=== PATIENT | male | born 1985 | race Caucasian/White ===

== ENCOUNTER 2020-04-07 17:12 | Emergency (ER) | payer OTHER ==
[~2020-04-07] VITALS: Ht 180.3 cm; Wt 104.6 kg
[2020-04-07 17:22] VITALS: BP 188/112
[2020-04-07] MEDS ORDERED: ondansetron 4mg rapidly disintigrating tab PO STA (17:27)
[2020-04-07] MEDS ORDERED: LIDOcaine Viscous 15ml cup MM ONE (17:30)
[2020-04-07] MEDS ORDERED: mag hydrox/Alum hydrox/simeth 30ml oral suspension PO ONE (17:30)
[2020-04-07] MEDS ORDERED: sucralfate 1 gm tablet PO ONE (17:30)
[2020-04-07 18:01] LABS: BASOPHILS # (AUTO) 0.1 X10'3 (0-0.2); BASOPHILS % (AUTO) 0.7 % (0-1); EOSINOPHILS # (AUTO) 0.3 X10'3 (0-0.9); EOSINOPHILS % (AUTO) 2.9 % (0-6); HEMATOCRIT 49.4 % (42.0-52.0); HEMOGLOBIN 16.8 g/dl (14.0-17.9); LYMPHOCYTES # (AUTO) 1.4 X10'3 (1.1-4.8); LYMPHOCYTES % (AUTO) 13.7 % (21-51); MEAN CORPUSCULAR HGB CONC 34.1 g/dL (33.0-36.5); MEAN CORPUSCULAR VOLUME 87.9 FL (78-98); MEAN PLATELET VOLUME 6.9 FL (7.4-10.4); MONOCYTES # (AUTO) 0.6 X10'3 (0-0.9); MONOCYTES % (AUTO) 5.7 % (2-12); NEUTROPHILS # (AUTO) 7.7 X10'3 (1.8-7.7); PLATELET COUNT 257 X10'3 (140-440); RED BLOOD COUNT 5.62 X10'6 (4.70-6.10); RED CELL DISTRIBUTION WIDTH 13.3 % (11.5-14.5)
[2020-04-07 18:08] LABS: ALANINE AMINOTRANSFERASE 59 U/L (12-78); ALBUMIN 4.2 G/DL (3.4-5.0); ALKALINE PHOSPHATASE 63 IU/L (46-116); AMYLASE 78 U/L (25-115); ANION GAP 7 (8-16); ASPARTATE AMINO TRANSFERASE 26 U/L (10-37); BILIRUBIN,TOTAL 0.6 MG/DL (0.1-1.0); BLOOD UREA NITROGEN 10 MG/DL (7-18); BUN/CREATININE RATIO 8.3 (5.4-32.0); CALCIUM 9.5 MG/DL (8.5-10.1); CHLORIDE 99 MMOL/L (99-107); GLUCOSE 98 MG/DL (70-104); LIPASE 485 U/L (73-393); POTASSIUM 4.1 MMOL/L (3.5-5.1); SODIUM 136 MMOL/L (135-145); TOTAL CARBON DIOXIDE 29.7 MMOL/L (24-32); TOTAL PROTEIN 8.4 G/DL (6.4-8.2); eGFR 69 ML/MIN
[2020-04-07] MEDS ORDERED: PANT-47 PO (18:18)
[2020-04-07 18:26] LABS: CLARITY,URINE CLEAR (Clear); COLOR,URINE YELLOW (Yellow); GLUCOSE, URINE NEGATIVE (Neg); KETONES,URINE NEGATIVE (Neg); LEUKOCYTE ESTERASE ,URINE NEGATIVE (Neg); NITRITES, URINE NEGATIVE (Neg); OCCULT BLOOD,URINE NEGATIVE (Neg); PH,URINE 6.5 (4.8-8.0); PROTEIN,URINE NEGATIVE (Neg); UROBILINOGEN,URINE 0.2 E.U/dL (0.2-1.0)
[2020-04-07 18:27] LABS: UA COLLECTION TYPE URINAL
== END 2020-04-07 18:27 | disposition home or self-care (01) ==
LOC: ER 17:13
DX: K29.20 Alcoholic gastritis without bleeding (principal); F10.10 Alcohol abuse, uncomplicated; F17.200 Nicotine dependence, unspecified, uncomplicated; R50.9 Fever, unspecified; Y90.0 Blood alcohol level of less than 20 mg/100 ml
CPT/HCPCS: 36415; 80053; 81003; 82150; 83690; 85025; 99284

== ENCOUNTER 2021-05-02 15:29 | Emergency (ER) | payer OTHER ==
[~2021-05-02] VITALS: Ht 180.3 cm; Wt 102.3 kg
[~2021-05-02 15:29] MED LIST: PANT-47 PO
[2021-05-02] MEDS ORDERED: sucralfate 1gm/10ml UD suspension PO STA (15:34)
[2021-05-02] MEDS ORDERED: LIDOcaine Viscous 15ml cup MM ONE (15:35)
[2021-05-02] MEDS ORDERED: mag hydrox/Alum hydrox/simeth 30ml oral suspension PO ONE (15:35)
[2021-05-02] MEDS ORDERED: sucralfate 1 gm tablet PO STA (15:37)
[2021-05-02 15:53] VITALS: BP 190/100
[2021-05-02 16:24] LABS: BASOPHILS % (AUTO) 0.3 % (0-1); EOSINOPHILS % (AUTO) 0.3 % (0-6); HEMATOCRIT 51.5 % (42.0-52.0); HEMOGLOBIN 17.6 g/dl (14.0-17.9); LYMPHOCYTES # (AUTO) 0.8 X10'3 (1.1-4.8); LYMPHOCYTES % (AUTO) 7.3 % (21-51); MEAN CORPUSCULAR HEMOGLOBIN 30.2 PG (27.0-31.0); MEAN CORPUSCULAR HGB CONC 34.1 g/dL (33.0-36.5); MEAN CORPUSCULAR VOLUME 88.5 FL (78-98); MEAN PLATELET VOLUME 7.1 FL (7.4-10.4); MONOCYTES # (AUTO) 0.6 X10'3 (0-0.9); MONOCYTES % (AUTO) 4.8 % (2-12); NEUTROPHILS # (AUTO) 10.1 X10'3 (1.8-7.7); NEUTROPHILS % (AUTO) 87.3 % (42-75); PLATELET COUNT 304 X10'3 (140-440); RED BLOOD COUNT 5.82 X10'6 (4.70-6.10); RED CELL DISTRIBUTION WIDTH 13.5 % (11.5-14.5); WHITE BLOOD COUNT 11.6 X10'3 (4.5-11.0)
[2021-05-02 16:42] LABS: ALANINE AMINOTRANSFERASE 64 U/L (12-78); ALBUMIN 4.4 G/DL (3.4-5.0); ALBUMIN/GLOBULIN RATIO 1.2 (1.1-1.5); ALKALINE PHOSPHATASE 84 IU/L (46-116); ANION GAP 8 (8-16); ASPARTATE AMINO TRANSFERASE 25 U/L (10-37); BILIRUBIN,TOTAL 0.7 MG/DL (0.1-1.0); BLOOD UREA NITROGEN 9 MG/DL (7-18); BUN/CREATININE RATIO 7.8 (5.4-32.0); CALCIUM 9.8 MG/DL (8.5-10.1); CHLORIDE 101 MMOL/L (99-107); CREATININE 1.16 MG/DL (0.60-1.10); GLUCOSE 117 MG/DL (70-104); POTASSIUM 4.4 MMOL/L (3.5-5.1); SODIUM 137 MMOL/L (135-145); TOTAL CARBON DIOXIDE 28.2 MMOL/L (24-32); TOTAL PROTEIN 8.2 G/DL (6.4-8.2); eGFR 71 ML/MIN
[2021-05-02 17:01] LABS: LIPASE 3538 U/L (73-393)
[2021-05-02] MEDS ORDERED: ONDA4TAB6 PO (17:34)
[2021-05-02] MEDS ORDERED: SUCR1TAB34 PO (17:34)
[2021-05-02] MEDS ORDERED: HYDR-3972 PO (17:34)
== END 2021-05-02 18:30 | disposition home or self-care (01) ==
LOC: ER 15:30
DX: K85.20 Alcohol induced acute pancreatitis without necrosis or infection (principal); R10.13 Epigastric pain; R07.89 Other chest pain; Z72.0 Tobacco use; Z72.89 Other problems related to lifestyle; Z79.899 Other long term (current) drug therapy
CPT/HCPCS: 36415; 71045; 80053; 83690; 85025; 99284

== ENCOUNTER 2021-05-05 17:11 | Emergency (ER) | payer OTHER, BC ==
[~2021-05-05] VITALS: Ht 180.3 cm; Wt 102.3 kg
[~2021-05-05 17:11] MED LIST changes: +HYDR-3972 PO; +ONDA4TAB6 PO; +SUCR1TAB34 PO
[2021-05-05 18:36] LABS: BASOPHILS # (AUTO) 0.1 X10'3 (0-0.2); BASOPHILS % (AUTO) 0.5 % (0-1); EOSINOPHILS # (AUTO) 0.4 X10'3 (0-0.9); EOSINOPHILS % (AUTO) 2.8 % (0-6); HEMATOCRIT 47.7 % (42.0-52.0); HEMOGLOBIN 17.1 g/dl (14.0-17.9); LYMPHOCYTES # (AUTO) 1.3 X10'3 (1.1-4.8); LYMPHOCYTES % (AUTO) 9.5 % (21-51); MEAN CORPUSCULAR HGB CONC 35.8 g/dL (33.0-36.5); MEAN CORPUSCULAR VOLUME 86.8 FL (78-98); MONOCYTES % (AUTO) 7.4 % (2-12); NEUTROPHILS # (AUTO) 10.7 X10'3 (1.8-7.7); NEUTROPHILS % (AUTO) 79.8 % (42-75); PLATELET COUNT 299 X10'3 (140-440); RED BLOOD COUNT 5.49 X10'6 (4.70-6.10); RED CELL DISTRIBUTION WIDTH 13.2 % (11.5-14.5); WHITE BLOOD COUNT 13.4 X10'3 (4.5-11.0)
[2021-05-05 18:42] LABS: ALANINE AMINOTRANSFERASE 36 U/L (12-78); ALBUMIN 3.6 G/DL (3.4-5.0); ALBUMIN/GLOBULIN RATIO 0.7 (1.1-1.5); ALKALINE PHOSPHATASE 87 IU/L (46-116); ANION GAP 10 (8-16); ASPARTATE AMINO TRANSFERASE 16 U/L (10-37); BLOOD UREA NITROGEN 7 MG/DL (7-18); BUN/CREATININE RATIO 6.3 (5.4-32.0); CALCIUM 9.6 MG/DL (8.5-10.1); CHLORIDE 94 MMOL/L (99-107); CREATININE 1.12 MG/DL (0.60-1.10); GLUCOSE 115 MG/DL (70-104); LIPASE 599 U/L (73-393); POTASSIUM 4.2 MMOL/L (3.5-5.1); SODIUM 134 MMOL/L (135-145); TOTAL PROTEIN 8.9 G/DL (6.4-8.2); eGFR 74 ML/MIN
[2021-05-05 19:27] LABS: PLATELET ESTIMATE NORMAL; SPHEROCYTES 2+
[2021-05-06] MEDS ORDERED: LORazepam 2 mg/ml vial IV ONE (03:15)
[2021-05-06] MEDS ORDERED: normal saline 1000ML IV soln IVB ONE ×2 (03:15)
[2021-05-06] MEDS ORDERED: diphenhydrAMINE 50 mg/ml inj IV ONE (03:15)
[2021-05-06] MEDS ORDERED: polyethylene glycol 3350 17gm powd pack PO STA (03:15)
[2021-05-06] MEDS ORDERED: metoclopramide 5 mg/ml inj IV ONE (03:15)
[2021-05-06] MEDS ORDERED: morphine 4 MG/ML inj SYRINge IV ONE (03:40)
[2021-05-06] MEDS ORDERED: diphenhydrAMINE 50 mg/ml inj ONE (03:55)
[2021-05-06] MEDS ORDERED: OXYC1TAB17 PO (04:56)
[2021-05-06] MEDS ORDERED: PANT20TA18 PO (05:08)
[2021-05-06 05:12] VITALS: BP 131/67
== END 2021-05-06 05:13 | disposition home or self-care (01) ==
LOC: ER 17:12
DX: K85.90 Acute pancreatitis without necrosis or infection, unspecified (principal); K59.00 Constipation, unspecified; R10.13 Epigastric pain; R11.10 Vomiting, unspecified; R50.9 Fever, unspecified; Z72.89 Other problems related to lifestyle; Z79.899 Other long term (current) drug therapy
CPT/HCPCS: 36415; 74176; 80053; 83690; 84145; 85008; 85025; 96374; 96375; 99284; J1200; J2060; J2270; J2765; J7030

== ENCOUNTER 2022-02-08 09:33 | Observation (INO) | payer OTHER, BC ==
[~2022-02-08] VITALS: Ht 180.3 cm; Wt 109.1 kg
[~2022-02-08 09:33] MED LIST changes: -HYDR-3972 PO; +PANT20TA18 PO
[2022-02-08 11:18] LABS: BASOPHILS # (AUTO) 0.1 X10'3 (0-0.2); BASOPHILS % (AUTO) 0.5 % (0-1); EOSINOPHILS # (AUTO) 0.4 X10'3 (0-0.9); EOSINOPHILS % (AUTO) 3.3 % (0-6); HEMATOCRIT 50.5 % (42.0-52.0); HEMOGLOBIN 17.1 g/dl (14.0-17.9); LYMPHOCYTES # (AUTO) 1.1 X10'3 (1.1-4.8); LYMPHOCYTES % (AUTO) 8.8 % (21-51); MEAN CORPUSCULAR HEMOGLOBIN 29.6 PG (27.0-31.0); MEAN CORPUSCULAR HGB CONC 33.9 g/dL (33.0-36.5); MEAN CORPUSCULAR VOLUME 87.3 FL (78-98); MEAN PLATELET VOLUME 6.8 FL (7.4-10.4); MONOCYTES # (AUTO) 0.8 X10'3 (0-0.9); MONOCYTES % (AUTO) 6.3 % (2-12); NEUTROPHILS # (AUTO) 10.3 X10'3 (1.8-7.7); NEUTROPHILS % (AUTO) 81.1 % (42-75); PLATELET COUNT 264 X10'3 (140-440); RED BLOOD COUNT 5.79 X10'6 (4.70-6.10); RED CELL DISTRIBUTION WIDTH 13.2 % (11.5-14.5); WHITE BLOOD COUNT 12.7 X10'3 (4.5-11.0)
[2022-02-08 11:28] LABS: ALANINE AMINOTRANSFERASE 51 U/L (12-78); ALBUMIN 3.9 G/DL (3.4-5.0); ALBUMIN/GLOBULIN RATIO 0.9 (1.1-1.5); ALKALINE PHOSPHATASE 77 IU/L (46-116); ANION GAP 6 (8-16); ASPARTATE AMINO TRANSFERASE 21 U/L (10-37); BLOOD UREA NITROGEN 7 MG/DL (7-18); BUN/CREATININE RATIO 7.1 (5.4-32.0); CALCIUM 9.3 MG/DL (8.5-10.1); CHLORIDE 99 MMOL/L (99-107); CREATININE 0.99 MG/DL (0.60-1.10); GLUCOSE 107 MG/DL (70-104); POTASSIUM 4.1 MMOL/L (3.5-5.1); SODIUM 132 MMOL/L (135-145); TOTAL CARBON DIOXIDE 27.4 MMOL/L (24-32); TOTAL PROTEIN 8.3 G/DL (6.4-8.2); eGFR 86 ML/MIN
[2022-02-08 11:57] LABS: LIPASE 1974 U/L (73-393)
[2022-02-08] MEDS ORDERED: morphine 4 MG/ML inj SYRINge IV ONE (14:30)
[2022-02-08] MEDS ORDERED: normal saline 1000ML IV soln IVB ONE (14:30)
[2022-02-08] MEDS ORDERED: ondansetron/PF 4mg/2ml inj IV ONE (14:30)
[2022-02-08] MEDS ORDERED: magnesium hydroxide 30ml (MOM) UD suspension PO PRN (15:10)
[2022-02-08] MEDS: normal saline 1000ml 1,000 ML IV SCH (15:10)
[2022-02-08] MEDS ORDERED: magnesium Cl slow-release 64mg tablet PO PRN (15:10)
[2022-02-08] MEDS ORDERED: potassium CL 10mEq/100ml bag 100 ML IV PRN (15:10)
[2022-02-08] MEDS ORDERED: magnesium 4gm in 100ml NS 100 ML IV PRN (15:10)
[2022-02-08] MEDS ORDERED: acetaminophen 325mg tablet PO PRN ×2 (15:10)
[2022-02-08] MEDS ORDERED: ondansetron/PF 4mg/2ml inj IV PRN (15:10)
[2022-02-08] MEDS ORDERED: magnesium 2GM in 50ml NS 50 ML IV PRN (15:10)
[2022-02-08] MEDS ORDERED: mag hydrox/Alum hydrox/simeth 30ml oral suspension PO PRN (15:10)
[2022-02-08] MEDS ORDERED: HYDROcodone/acetaminophen 5mg/325mg tablet PO PRN (15:10)
[2022-02-08] MEDS ORDERED: HYDROcodone/acetaminophen 10/325mg tab PO PRN (15:10)
[2022-02-08] MEDS ORDERED: metoclopramide 5 mg/ml inj IV PRN (15:10)
[2022-02-08] MEDS ORDERED: POTASSIUM BICARB 20meq eff tab 20 MEQ TABLET.EFF PO PRN ×2 (15:10)
[2022-02-08] MEDS ORDERED: morphine 2 MG/ML inj. syringe IV PRN ×2 (15:10)
[2022-02-08] MEDS ORDERED: ondansetron 4mg rapidly disintigrating tab PO PRN (15:10)
[2022-02-08 15:17] LABS: ETHANOL < 0.010 GM/DL (0.0-0.010)
[2022-02-08] MEDS ORDERED: haloperidol lactate 5mg/ml inj IM PRN (15:50)
[2022-02-08] MEDS ORDERED: LORazepam 2 mg/ml vial IV PRN (15:50)
[2022-02-08] MEDS ORDERED: thiamine 100mg/ml 2ml inj. IV ONE (15:50)
[2022-02-08] MEDS ORDERED: haloperidol 5mg tablet PO PRN (15:50)
[2022-02-08] MEDS: nicotine 14mg patch - 24hr TD SCH (15:50)
[2022-02-08 16:04] LABS: MAGNESIUM 2.2 MG/DL (1.5-2.4)
[2022-02-08 16:37] LABS: APTT 26 SECONDS (22-32)
[2022-02-08 17:02] LABS: CLARITY,URINE CLEAR (Clear); GLUCOSE, URINE NEGATIVE (Neg); KETONES,URINE NEGATIVE (Neg); LEUKOCYTE ESTERASE ,URINE NEGATIVE (Neg); NITRITES, URINE NEGATIVE (Neg); OCCULT BLOOD,URINE NEGATIVE (Neg); PH,URINE 5.5 (4.8-8.0); PROTEIN,URINE NEGATIVE (Neg); UROBILINOGEN,URINE 0.2 E.U/dL (0.2-1.0)
[2022-02-08] MEDS ORDERED: NO HOME MEDS (17:03)
[2022-02-08 17:10] LABS: COLOR,URINE STRAW (Yellow); UA COLLECTION TYPE NON-SPECIFIED
[2022-02-08] MEDS: K and/or MAG REPLACEMENT MC SCH (19:02)
[2022-02-08] MEDS: docusate sod 100mg capsule PO SCH (19:06)
[2022-02-08] MEDS: cloNIDine 0.1 mg tablet PO PRN (20:05)
--- NOTE | 2022-02-08 20:11 | NUR ---
po med given ivp given by monorail charger operator
[2022-02-08] MEDS ORDERED: temazepam 15mg capsule PO PRN (21:00)
[2022-02-08] MEDS: LORazepam 1 MG tablet PO PRN ×2 (23:20→23:37)
--- NOTE | 2022-02-09 00:18 | NUR ---
report given to floor rn pt ready for tx to floor.
[2022-02-09] MEDS: normal saline 1000ml 1,000 ML IV SCH ×2 (00:43→07:10)
[2022-02-09 02:00] VITALS: BP 179/84
[2022-02-09] MEDS: cloNIDine 0.1 mg tablet PO PRN (05:07)
[2022-02-09 06:00] VITALS: BP 181/103
--- NOTE | 2022-02-09 06:05 | NUR ---
Problems reprioritized. Patient report given, questions answered & plan of care reviewed with Jonelle FARMER. Addendum: 02/09/22 at 0607 by Gosia Win RN Amended: Links added.
--- NOTE | 2022-02-09 06:35 | NUR ---
Patient in room [facility] 4009. I have received report from octavia prasad and had the opportunity to ask questions and assume patient care.
[2022-02-09 06:58] VITALS: BP 149/92
[2022-02-09] MEDS: K and/or MAG REPLACEMENT MC SCH (08:00)
[2022-02-09] MEDS ORDERED: enoxaparin 40mg/0.4ml syringe SUBCUT SCH (08:00)
[2022-02-09] MEDS ORDERED: multivitamins, therapeutics tablet PO SCH (08:00)
[2022-02-09] MEDS ORDERED: naltrexone 50mg tablet PO SCH (08:00)
[2022-02-09 08:17] LABS: BASOPHILS % (AUTO) 0.4 % (0-1); EOSINOPHILS # (AUTO) 0.5 X10'3 (0-0.9); EOSINOPHILS % (AUTO) 4.5 % (0-6); HEMATOCRIT 41.8 % (42.0-52.0); HEMOGLOBIN 14.6 g/dl (14.0-17.9); LYMPHOCYTES % (AUTO) 8.9 % (21-51); MEAN CORPUSCULAR HEMOGLOBIN 29.9 PG (27.0-31.0); MEAN CORPUSCULAR HGB CONC 34.8 g/dL (33.0-36.5); MEAN CORPUSCULAR VOLUME 85.9 FL (78-98); MONOCYTES # (AUTO) 0.9 X10'3 (0-0.9); MONOCYTES % (AUTO) 7.9 % (2-12); NEUTROPHILS # (AUTO) 8.9 X10'3 (1.8-7.7); NEUTROPHILS % (AUTO) 78.3 % (42-75); PLATELET COUNT 211 X10'3 (140-440); RED BLOOD COUNT 4.87 X10'6 (4.70-6.10); WHITE BLOOD COUNT 11.3 X10'3 (4.5-11.0)
[2022-02-09] MEDS: nicotine 14mg patch - 24hr TD SCH (08:22)
[2022-02-09] MEDS: docusate sod 100mg capsule PO SCH (08:23)
[2022-02-09 08:29] LABS: ALANINE AMINOTRANSFERASE 32 U/L (12-78); ALBUMIN 2.9 G/DL (3.4-5.0); ALBUMIN/GLOBULIN RATIO 0.7 (1.1-1.5); ALKALINE PHOSPHATASE 60 IU/L (46-116); ANION GAP 7 (8-16); ASPARTATE AMINO TRANSFERASE 21 U/L (10-37); BILIRUBIN,TOTAL 0.7 MG/DL (0.1-1.0); BLOOD UREA NITROGEN 6 MG/DL (7-18); BUN/CREATININE RATIO 7.1 (5.4-32.0); CALCIUM 8.7 MG/DL (8.5-10.1); CHLORIDE 102 MMOL/L (99-107); CREATININE 0.85 MG/DL (0.60-1.10); GLUCOSE 96 MG/DL (70-104); LIPASE 493 U/L (73-393); MAGNESIUM 2.1 MG/DL (1.5-2.4); SODIUM 135 MMOL/L (135-145); TOTAL CARBON DIOXIDE 25.9 MMOL/L (24-32); TOTAL PROTEIN 6.9 G/DL (6.4-8.2); eGFR > 90 ML/MIN
[2022-02-09 09:02] LABS: APTT 28 SECONDS (22-32)
[2022-02-09] MEDS ORDERED: MULT-25 PO (09:44)
[2022-02-09] MEDS ORDERED: THIA50TA10 PO (09:44)
[2022-02-09] MEDS ORDERED: NALT50TA PO (09:44)
[2022-02-09] MEDS ORDERED: LORA-268 PO ×2 (09:44→09:48)
[2022-02-09] MEDS ORDERED: NICO-631 TD (09:44)
[2022-02-09] MEDS ORDERED: FOLI1TAB27 PO (09:44)
[2022-02-09] MEDS ORDERED: PANT-47 PO (09:49)
--- NOTE | 2022-02-09 09:50 | NUR ---
Met with patient in regards to alcohol use and to see if patient wanted resources for treatment options. Patient is interested in outpatient resources. I gave him a list of places for outpatient services and talked to him about getting a sponsor. Dr Felder started him on Naltrexone. I gave him my card to call me if he had any questions.
[2022-02-09 10:00] VITALS: BP 155/96
--- NOTE | 2022-02-09 10:57 | NUR ---
pt is stable for discharge, iv is dc and intact, all belongings sent with pt, all discharge signed, pt walked down with and aide, left in a private vehicle. was given education on etoh and tobacco use.
[2022-02-13] MEDS ORDERED: folic acid 1mg tablet PO SCH (08:00)
[2022-02-13] MEDS ORDERED: thiamine 100mg tablet PO SCH (08:00)
== END 2022-02-09 10:57 | disposition home or self-care (01) ==
LOC: ER 09:33 → ED HOLD 15:14 → ORTHO 4S 02-09 00:29
PROVIDERS: ADMIT Family Medicine; ATTEND Family Medicine
DX: K85.20 Alcohol induced acute pancreatitis without necrosis or infection (principal); F10.20 Alcohol dependence, uncomplicated; E87.1 Hypo-osmolality and hyponatremia; D72.829 Elevated white blood cell count, unspecified; F17.220 Nicotine dependence, chewing tobacco, uncomplicated; Z79.899 Other long term (current) drug therapy
CPT/HCPCS: 36415; 80053; 80320; 81003; 83605; 83690; 83735; 85025; 85610; 85651; 85730; 87040; 87081; 93005; 96361; 96372; 96374; 96375; 99284; G0378; J1650; J2270; J2405; J2765; J3411; J7030